=== PATIENT | male | born 1990 | race Hispanic/Latino ===

== ENCOUNTER 2018-04-29 14:22 | Emergency (ER) | payer SELFPAY ==
[2018-04-29] MEDS ORDERED: HYDROCODONE/APAP 5/325 MG TAB ONE (14:55)
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
== END 2018-04-29 15:00 | disposition home or self-care (01) ==
LOC: ER 14:22
DX: T20.16XA Burn of first degree of forehead and cheek, initial encounter (principal); T20.17XA Burn of first degree of neck, initial encounter; T22.131A Burn of first degree of right upper arm, initial encounter; T31.0 Burns involving less than 10% of body surface; X12.XXXA Contact with other hot fluids, initial encounter; Y93.G3 Activity, cooking and baking; Y92.9 Unspecified place or not applicable
CPT/HCPCS: 99283